=== PATIENT | female | born 1985 | race Two or more races ===

== ENCOUNTER 2017-12-15 09:49 | Emergency (ER) | payer OTHER ==
[~2017-12-15] VITALS: Ht 165.1 cm; Wt 110.7 kg
[2017-12-15 09:56] VITALS: Ht 165.1 cm; Wt 110.7 kg
[2017-12-15 11:15] LABS: CALCIUM 8.3 mg/dL (8.5-10.1); CARBON DIOXIDE 27.7 mmol/L (21-32); CHLORIDE SERUM 114 mmol/L (98-107); CREATININE SERUM 0.7 mg/dL (0.6-1.0); GFR1 > 60 mL/min; GLUCOSE SERUM 97 mg/dL (74-106); POTASSIUM SERUM 4.2 mmol/L (3.5-5.1); SODIUM SERUM 141 mmol/L (136-145)
[2017-12-15 11:19] LABS: ALBUMIN 3.6 g/dL (3.4-5.0); ALKALINE PHOSPHATASE 69 U/L (46-116); ALT/SGPT 20 U/L (14-59); AST/SGOT 16 U/L (15-37); BILIRUBIN TOTAL 0.4 mg/dL (0.20-1.00); LIPASE 211 IU/L (73-393); TOTAL PROTEIN, SERUM 7.3 g/dL (6.4-8.2)
[2017-12-15 11:23] LABS: BASOPHIL % 0.2 % (0-2); PLATELET COUNT 194 x10^3mcL (130-400)
[2017-12-15 11:30] LABS: UA SPECIFIC GRAVITY 1.015 (1.005-1.035); microscopic required? YES; urine erythrocyte 3+ (NEGATIVE)
[2017-12-15 13:10] VITALS: BP 112/66
== END 2017-12-15 13:10 | disposition home or self-care (01) ==
LOC: ED 09:49
PROVIDERS: Emergency Medicine
DX: R10.32 Left lower quadrant pain (principal)
CPT/HCPCS: 36415; J1885